=== PATIENT | female | born 1955 | race Caucasian/White ===

== ENCOUNTER → 2017-08-02 | Outpatient (CLI) | payer BC ==
[2017-08-02 12:17] VITALS: BP 151/80; PULSE 63; TEMP 98; BMI 29.2
--- NOTE | 2017-08-02 13:26 | P.GSHP ---
History of Present Illness H&P Date: 08/02/17 Patient is a 62 year old white female status post breast reduction in 2008 and has since had a nodule in the left breast in the 12 oclock position of the left breast. She awoke 3 days ago with pain in the area of the nodularity. The area of pain is at a specific lump in the left breast. It was tender and throbbing in nature. The area was warm to the touch. The pain is intermittent , it started on Saturday Am, and by Saturday is was improving, but it still is uncomfortable. The pain was spreading through to her nipple. Patient denies any pain or lumps in her right breast. Patient denies fevers. Patient did have bilateral mammogram done in approximately March 2017 and was told that this was benign and that she should have repeat mammogram in 1 year. These results revealed a large coarse calcification in the left breast near the area of palpable abnormality. No lesions of concern were documented in the right breast. Past surgical history: 1. total thyroid resection 2. bilateral breast reduction 3. hemorhoidectomy 4. dilation of esophagitis related to GERD 5. Blepharoplasty Past medical history: 1. Hypothyroidism on Synthroid secondary to surgical removal of thyroid for malignancy 2. GERD 3. hypertension Family history: 1. Personal history patient thyroid cancer Social history: Smoking: Negative Alcohol: Negative Drugs: Negative Hormonal history: Menarche: 15 pregnecy: none menopause: 55 BCP/hormones: none ROS: HEENT: thyroid cancer total thyroidectomy lungs: none heart: a-fib, not on blood thinners GI:GERD : none Musculoskeletal: None Neurologic: none skin: none psych: none - Constitutional Constitutional: Denies chills, Denies fever - EENT Eyes: denies blurred vision, denies pain Ears, nose, mouth and throat: Denies headache, Denies sore throat - Breasts Breasts: bilateral: as per HPI - Cardiovascular Cardiovascular: Reports as per HPI - Respiratory Respiratory: Reports as per HPI - Gastrointestinal Gastrointestinal: Reports as per HPI - Genitourinary (Female) Genitourinary: Reports as per HPI - Integumentary Integumentary: Denies pruritus, Denies rash - Neurological Neurological: Denies numbness, Denies weakness - Psychiatric Psychiatric: Denies anxiety, Denies depression - Endocrine Comment: total thyroidectomy Endocrine: Denies fatigue, Denies weight change - Hematologic/Lymphatic Comment: none - Allergic/Immunologic Allergic/Immunologic: Reports seasonal allergies Past Medical History - Past Family History Mother Family Medical History: Coronary Artery Disease (CAD) Brother(s) Family Medical History: Myocardial Infarction (ME) Medications and Allergies Home Medications Medication Instructions Recorded Confirmed Type Esomeprazole Magnesium [NexIUM] 40 mg PO HS 08/02/17 08/02/17 History Levothyroxine Sodium [Synthroid] 112 mcg PO QA 08/02/17 08/02/17 History Lisinopril [Zestril] 20 mg PO HS 08/02/17 08/02/17 History Surgical - Exam - General well developed, well nourished, no distress - Eyes normal ocular movement - ENT no hearing loss, no congestion - Neck Well-healed scar prior thyroidectomy a no masses, trachea midline - Respiratory normal respiratory effort, clear to auscultation - Cardiovascular Rhythm: regular Heart Sounds: normal: S1, S2 - Abdomen Abdomen: soft, non tender, no guarding, no rigid, no rebound - Neurologic no disoriented, no combative - Musculoskeletal normal gait, normal posture - Psychiatric oriented to time, oriented to person, oriented to place, speech is normal, memory intact Breast examination: Right breast: Well-healed scars from prior reduction no dominant masses or nodules of concern and multiple positional exam : Right axilla: No adenopathy of concern Left breast: Well-healed scars from prior reduction mammoplasty on examination at the 12 o'clock position there is an area of increased nodularity patient states that this has been present for many years but it is now tender In the medial periareolar area there is erythema/calor Left axilla no adenopathy of concern Results mammogram results reviewed left breast mammogram and ultrasound reviewed Assessment and Plan Assessment: Impression/plan: 1. Left breast pain/ultrasound findings reviewed, probable fat necrosis related to reduction mammoplasty 2. Status post bilateral breast reduction 3. History of thyroid cancer status post thyroid resection 4. Hypertension 5. GERD 6. Erythema/calor of the medial periareolar area of the left breast may represent superficial infection Plan: 1. Keflex secondary to erythema/calor of the medial periareolar area of the left breast there is no drainable abscess identified on ultrasound 2. Ultrasound-guided core biopsy of area of concern in the left breast 3. Follow-up after results of ultrasound core biopsy obtained 4. Medical management of medical problems 5. Follow-up sooner if the erythema or the pain increases CC: Dr. Gaspar, DR. Carranza
--- NOTE | 2017-08-05 08:29 | USB ---
Reason for exam: clinical finding. History: Reductions of both breasts, 2009. Physical Findings: Breast exam performed by Dr. Schmitt. US Breast LT Prior study comparison: March 01, 2017, mammogram, performed at [facility]. May 09, 2014, mammogram, performed at [facility]. Left complete breast ultrasound includes all four quadrants, the retroareolar region and axilla. Finding demonstrates a 2.0 x 2.6 x 0.7cm lobular, irregular, solid, hypoechoic lesion at 11-12 o'clock correlates with large dystrophic calcified masses on outside mammogram, a 0.7 x 0.6 x 0.3cm oval lesion too small to characterize at 1 o'clock and duct ectasia at 2 o'clock and posterior nipple. These results were verbally communicated with the patient and result sheet given to the patient on 08/02/17. ASSESSMENT: Benign, BI-RAD 2 RECOMMENDATION: Routine screening mammogram of both breasts in 6 months. Back on schedule.
== END | disposition home or self-care (01) ==
LOC: WWCWWP 11:11
PROVIDERS: ATTEND Surgery
DX: N63.20 Unspecified lump in the left breast, unspecified quadrant (principal)

== ENCOUNTER → 2017-08-13 | Day surgery (SDC) | payer BC ==
[2017-08-13 11:32] VITALS: RESP 16; BMI 29.2
[2017-08-13 13:01] VITALS: BP 127/78; PULSE 62; TEMP 98.1
--- NOTE | 2017-08-13 13:23 | USB ---
ULTRASOUND GUIDED CORE BIOPSY LEFT BREAST: CLINICAL HISTORY: Abnormal mammogram request for 11:00 calcified breast lesion for biopsy FINDINGS: The procedure was explained to the patient. The risks, complications, benefits and alternatives were discussed and any questions were answered. Informed consent was obtained. Patient was placed supine on the ultrasound table and prepped and draped in the usual sterile fashion. Utilizing a 14 gauge needle, 3 samples were obtained of the requested calcified lesion in the left breast at the approximate 11:00 position. Surgical clip was placed in the area sampled. Patient was stable throughout the procedure. Pathology is pending. All elements of maximal barrier and sterile technique were utilized. IMPRESSION: 1. Successful ultrasound core biopsy left breast mass. Pathology Results: Benign BREAST, LEFT, ULTRASOUND GUIDED CORE BIOPSY: Scar with calcifications, fat necrosis, and inflammation. Negative for malignancy. Recommendation Surgical consult of the left breast. VANCED
== END | disposition home or self-care (01) ==
LOC: RADUSWWP 11:15
PROVIDERS: ATTEND Surgery
DX: N64.1 Fat necrosis of breast (principal); N61.0 Mastitis without abscess; L90.5 Scar conditions and fibrosis of skin
CPT/HCPCS: 88305; 19083; A4648; J2001

== ENCOUNTER → 2017-08-29 | Outpatient (CLI) | payer BC ==
[2017-08-29 09:02] VITALS: BP 103/68; PULSE 70; TEMP 98.1; BMI 28.6
--- NOTE | 2017-08-29 09:25 | P.PN ---
Subjective Progress Note Date: 08/29/17 Principal diagnosis: status post left breast biopsy by radiology Patient underwent a left breast ultrasound biopsy on 08-13-17. The pathology was benign. The pain she had at the 12 oclock site has improved, however, on she noted swelling and redness at the 9 oclock site of the left breast. The patient denies any fever. The area of redness has remained persistent. I have discussed with her attempt at aspiration, with cultures to be obtained. She understands and wishes to proceed. Objective - Vital Signs Vital signs: Vital Signs Temp 98.1 F 08/29/17 08:54 Pulse 70 08/29/17 08:54 Resp BP 103/68 08/29/17 08:54 Pulse Ox 96 08/29/17 08:54 Intake & Output 08/28/17 08/29/17 08/29/17 18:59 06:59 18:59 Weight 75.75 kg - Constitutional General appearance: Present: average body habitus - Integumentary Integumentary Comment(s): Examination of the left breast reveals erythema at the one to 2 o'clock position in the periareolar region. The area of erythema is approximately 2 cm x 1 cm. There is an area of fullness at this site. The area of prior fullness at the 12 o'clock position remains however there was no pain or redness at that site. The puncture site from the core biopsy was identified and does not appear to be inflamed. No other masses in the left breast are noted. No left axillary adenopathy is noted. - Psychiatric Psychiatric: Present: A&O x's 3, appropriate affect, intact judgment & insight Assessment and Plan Assessment: Impression/plan: 1. Patient is status post left breast ultrasound-guided core biopsy pathology is benign 2. New area of erythema and tenderness in the lateral aspect of the left breast 3. Fine-needle aspiration performed/ specimen sent for culture and cytology 4. Patient will be started on oral antibiotics 5. Patient to follow up in 1 week she will call sooner if any questions or concerns CC: Dr. Carranza CC: Dr. Gaspar
--- NOTE | 2017-08-29 09:30 | P.PCN ---
Date of Procedure: 08/29/17 Preoperative Diagnosis: Fullness left breast Postoperative Diagnosis: same Procedure(s) Performed: Fine-needle aspiration, for culture Surgeon: Klaeigh Schmitt Estimated Blood Loss (ml): 0 Pathology: other (Specimen sent for cytology and cultures) Condition: stable Indications for Procedure: New fullness in the left breast with erythema associated with this suspect this may be related to inflammation versus abscess Description of Procedure: The area of concern in the left breast was palpated. It was prepped. A 22 gauge needle was inserted into the area and tissue from multiple passes was obtained. This was sent for cytology as well as culture. The patient tolerated the procedure well. The patient was started on oral antibiotics and will follow up next week.
== END | disposition home or self-care (01) ==
LOC: WWCWWP 08:47
PROVIDERS: ATTEND Surgery
DX: N63.20 Unspecified lump in the left breast, unspecified quadrant (principal); N64.4 Mastodynia

== ENCOUNTER → 2017-09-06 | Outpatient (CLI) | payer BC ==
[2017-09-06 12:22] VITALS: BP 123/79; PULSE 68; TEMP 98.2; BMI 28.1
--- NOTE | 2017-09-06 12:54 | P.PN ---
Subjective Progress Note Date: 09/06/17 The patient is a 62-year-old white female who was initially seen for discomfort in her left breast near the 12:00 region. On radiograph she had some changes which appeared to be consistent with prior reduction mammoplasty and a core biopsy was obtained. The core biopsy was benign. Following the core biopsy of pain in that area seemed to subside but she developed swelling near the region of the core biopsy. There was also erythema associated with this. An FNA was done of this area which was negative for any organisms on microbiology. And the specimen was virtually acellular consisting of blood and degenerated cellular material. It is felt this is most likely a resolving hematoma. Today the patient is feeling better with decrease in size of the area. The erythema has decreased. We will continue to follow conservatively. Physical exam: Examination of the left breast at the site of the prior core biopsy reveals continued area of noduarity on palpation at 12:00 which is benign on core biopsy this has decreased tenderness at the 9:00 region where the erythema had been noted and FNA was performed on 08/29/17 the area has decreased in size and the erythema has decreased. Impression/plan: 1. Resolved breast discomfort at the 12f:00 region of the breast were core biopsy was obtained 2. Resolving hematoma at the 9:00 region of the left breast/cultures negative, will not restart antibiotics at this time Plan: 1. Continue conservative management follow-up in 2 weeks' time Cc: Dr. Gaspar Objective - Vital Signs Vital signs: Vital Signs Temp 98.2 F 09/06/17 12:20 Pulse 68 09/06/17 12:20 Resp BP 123/79 09/06/17 12:20 Pulse Ox 96 09/06/17 12:20 Intake & Output 09/05/17 09/06/17 09/06/17 18:59 06:59 18:59 Weight 74.389 kg
== END | disposition home or self-care (01) ==
LOC: WWCWWP 12:05
PROVIDERS: ATTEND Surgery
DX: N64.4 Mastodynia (principal); Z53.9 Procedure and treatment not carried out, unspecified reason

== ENCOUNTER → 2017-09-19 | Outpatient (CLI) | payer BC ==
[2017-09-19 09:22] VITALS: BP 127/69; PULSE 57; BMI 28.1
--- NOTE | 2017-09-19 09:45 | P.PN ---
Progress Note - Text Progress Note Date: 09/19/17 The patient is a 62-year-old white female who is status post post-core biopsy of an area of concern in the left breast. Following the core biopsy although the pathology was benign she developed some swelling and erythema. She was initially treated for an infection however cultures were negative. At this time the swelling and erythema has decreased. She is not experiencing any pain in her breast. She has some residual fullness at the area of the biopsy. This is approximately 2 cm x 1 cm in size. Impression/plan: 1. Conservative management of resolving hematoma 2. Resolved discomfort in the breast 3. Follwo up in three months cc: Dr. Gaspar
== END ==
LOC: WWCWWP 08:59
PROVIDERS: ATTEND Surgery
DX: Z53.9 Procedure and treatment not carried out, unspecified reason (principal)

== ENCOUNTER → 2017-12-19 | Outpatient (CLI) | payer BC ==
[2017-12-19 09:44] VITALS: BP 134/85; PULSE 61; RESP 12; BMI 28.6
--- NOTE | 2017-12-19 10:27 | P.PN ---
Progress Note - Text Progress Note Date: 12/19/17 The patient is a 62-year-old white female who presents for repeat evaluation of the left breast. The patient had noticed some increased pain in her left breast at the 12 o'clock position as well as some nodularity. An ultrasound core biopsy of the area revealed scar with calcifications, fat necrosis, and inflammation negative for malignancy. Following the core biopsy the patient developed some swelling and erythema in the area and was treated with antibiotics. The patient also developed some firmness at the 2 o'clock position of the periareolar region on the left near where the needle had been inserted. This was believed to be consistent with a hematoma. This remains persistent and has not really decreased in size as per the patient. The erythema has resolved, and the pain has resolved as well. The patient has what appears to be a residual hematoma at the site of the core biopsy. By history the patient's last mammogram was approximately March 2017 which she was told was benign. Physical examination: Lungs: Clear Heart: Regular rate and rhythm Abdomen: Soft Left breast: Multiple positional exam reveals well-healed scar from prior reduction mammoplasty At the 11 o'clock position there is some increased nodularity which is believed to be the area which was biopsied and is benign at the approximately 2:00 periareolar position there is an area of firm nodularity which is approximately 1-1/2 cm in size this is consistent with the area where hematoma developed after her core biopsy we will continue to follow this closely Left axilla: No adenopathy of concern Impression/plan: 1. Decreased pain in the left breast 2. Decreased erythema left breast no evidence of any infection 3. Palpable abnormality consistent with fat necrosis remains in the upper inner area of the left breast, 4. Area of firmness remains at the 1 to 2:00 periareolar region of the left breast believed to be consistent with hematoma we will continue to follow this area Plan: 1. Repeat left breast ultrasound in 3 months time with physician exam at that time 2. If area of firmness remains at the 2 o'clock position of the left breast depending on ultrasound results may recommend FNA or core biopsy of this area Cc: Dr. Frances Gaspar, Dr. Gene Carranza
== END | disposition home or self-care (01) ==
LOC: WWCWWP 08:33
PROVIDERS: ATTEND Surgery
DX: Z53.9 Procedure and treatment not carried out, unspecified reason (principal)

== ENCOUNTER → 2018-06-25 | Outpatient (CLI) | payer BC ==
--- NOTE | 2018-06-25 11:33 | USB ---
Reason for exam: follow-up at short interval from prior study. History: Benign US breast needle core LT of the left breast, August 13, 2017. Reductions of both breasts, 2009. Indicated problem(s): palpable abnormality and lump or thickening in the left breast. Physical Findings: Nurse Summary: 2cm fixed nodule at 11 o'clock in the left breast and a 1cm fixed nodule at 12 o'clock in the left breast (nurse cw). US Breast LT Left complete breast ultrasound includes all four quadrants, the retroareolar region and axilla. Finding demonstrates a 1.1 x 0.6 x 1.2cm benign, cystic cluster at 12 o'clock, a 0.6 x 0.5 x 0.8cm palpable, cystic cluster at 2 o'clock BB, new, mammogram recommended to assess for new density and a 2.3 x 1.1 x 2.0cm solid, hypoechoic, vascular lesion at 11 o'clock BB, biopsy proven benign. These results were verbally communicated with the patient and result sheet given to the patient on 06/25/18. ASSESSMENT: Incomplete: need additional imaging evaluation, BI-RAD 0 RECOMMENDATION: Follow-up diagnostic mammogram of the left breast.
--- NOTE | 2018-06-25 11:37 | MM ---
Reason for exam: additional evaluation requested from prior study. Last mammogram was performed 1 year and 4 months ago. History: Benign US breast needle core LT of the left breast, August 13, 2017. Reductions of both breasts, 2009. MG 3D Diag Mammo W/Cad LT CC and MLO view(s) were taken of the left breast. Prior study comparison: March 01, 2017, mammogram, performed at [facility]. May 09, 2014, mammogram, performed at [facility]. The breast tissue is heterogeneously dense. This may lower the sensitivity of mammography. There are branching regional coarse calcifications at anterior depth in the left upper outer quadrant at the palpable site. Stereo is recommended as these are new. Dystrophic biopsy proven benign upper inner quadrant calcifications at middle depth with some new calcifications at this site. 6 month follow up for the new calcifications. These results were verbally communicated with the patient and result sheet given to the patient on 06/25/18. ASSESSMENT: Suspicious, BI-RAD 4 RECOMMENDATION: Stereotactic core biopsy of the left breast. Called with mammographic findings and has scheduled an appointment for the patient for 06/26/18 at 9:[address] Schmitt. Biopsy scheduled for 07/11/18 at 8:00. PRELIMINARY REPORT CALLED AND FAXED TO DR. SCHMITT ON 06/25/18.
== END | disposition home or self-care (01) ==
LOC: RADUSWWP 07:36
PROVIDERS: ATTEND Surgery
DX: R92.8 Other abnormal and inconclusive findings on diagnostic imaging of breast (principal)
CPT/HCPCS: 77061; 77065

== ENCOUNTER → 2018-06-26 | Outpatient (CLI) | payer BC ==
[2018-06-26 09:58] VITALS: BP 120/64; PULSE 62; RESP 20; TEMP 97.5; BMI 28.3
--- NOTE | 2018-06-26 10:18 | P.PN ---
Subjective Progress Note Date: 06/26/18 Principal diagnosis: abnormal mammogram left breast Patient is a 63-year-old white female who presents for repeat evaluation of the left breast. The patient had noticed some increased pain in her left breast at the 12 o'clock position as well as some nodularity approximately 8-9 months ago. An ultrasound core biopsy of the area reveals scar with calcifications, fat necrosis, and inflammation negative for malignancy. Following the core biopsy the patient developed some swelling and erythema in the area and was treated with antibiotics. The patient also developed some firmness at the 2 o'clock position of the periareolar region on the left with a needle had been inserted. This was believed to be consistent with a hematoma. The area remains persistent. The patient states it is decreased slightly in size. The erythema has resolved the pain has resolved as well. An ultrasound of the left breast was performed and [id number]. This revealed a 1.1 x 1.2 cm benign cystic cluster at 12:00, a 0.6 x 0.8 cm area at 2:00, and a mammogram was recommended. The patient had a density which was a 2.3 x 2 cm solid hypoechoic the colonic vascular lesion at 11:00 which had been biopsy-proven benign in the past. The patient had a repeat left breast mammogram on 420 [id number]. This revealed branching regional coarse calcifications in the left upper outer quadrant at the palpable site. Stereo biopsy was recommended as these are new. Dystrophic biopsy-proven benign upper inner quadrant calcifications at middle depth. Six- month follow-up for the new calcifications. And stereotactic core biopsy of the left breast for the new branching regional coarse calcifications that anterior depth. The patient does not feel any other lumps or masses in her breast. The patient has no nipple discharge or skin changes. The patient has had bilateral breast reduction in the past. Family history: thyroid cancer patient Hormonal history: menarche: 15 : none menopause: 51 BCP: none hormones: none Surgical history: 1. Bilateral thyroid lobes removed 2. Endoscopic esophageal stretching secondary to stenosi 3. Hemorrhoidectomy Medical history: 1. IBS Social history: Smoking: Negative Alcohol: Negative Drugs: Negative Review of systems: HEENT: Cataracts developing, macular degeneration Lungs: Negative Heart: Negative GI: Esophageal strictures in the past, irritable bowel syndrome, reflux : blood in urine followed by urology Objective - Exam BMI 28.3 - Constitutional General appearance: Present: average body habitus - EENT Eyes: Present: EOMI ENT: Present: hearing grossly normal - Neck Neck: Present: normal ROM - Respiratory Respiratory: bilateral: CTA - Cardiovascular Rhythm: regular Heart sounds: normal: S1, S2 - Integumentary Integumentary: Present: normal turgor - Musculoskeletal Musculoskeletal: Present: gait normal - Psychiatric Psychiatric: Present: A&O x's 3, appropriate affect, intact judgment & insight - Additional findings Additional findings: breast exam: right breast: Well-healed scars from prior right breast reduction mammoplasty, multiple positional exam no dominant masses or nodules of concern Right axilla: No adenopathy of concern Left breast: Multiple positional exam persistent nodularity at 12 o'clock position superficial slightly smaller than in the past Left axilla: No adenopathy of concern Assessment and Plan Assessment: Impression: 1. Radiographic abnormality left breast 2. Palpable abnormality left breast 3. Fibrocystic changes left breast 4. Prior history of thyroid cancer Plan: 1. Radiographs to be reviewed suspect stereotactic core biopsy of area in the left breast if this is too superficial would recommend open biopsy in the operating room CC: Dr. Gene Carranza
== END | disposition home or self-care (01) ==
LOC: WWCWWP 09:00
PROVIDERS: ATTEND Surgery
DX: Z53.9 Procedure and treatment not carried out, unspecified reason (principal)

== ENCOUNTER → 2018-07-11 | Day surgery (SDC) | payer BC ==
[2018-07-11 07:27] VITALS: PULSE 62; RESP 16; TEMP 98.1; BMI 27.8
--- NOTE | 2018-07-11 09:20 | MM ---
Stereotactic core biopsy left breast. HISTORY: Microcalcifications. The calcifications in question within the left breast were targeted by the undersigned. The examination was performed by the surgeon. Specimen radiograph demonstrates numerous calcifications within the specimen submitted. Post procedural mammogram demonstrates appropriate deployment of radiopaque clip marker. The patient tolerated the procedure well and left the department in stable condition. Pathology results are pending. IMPRESSION: Successful stereotactic core biopsy left breast with pathology results pending. Pathology Results: Benign LEFT BREAST, STEREOTACTIC CORE BIOPSY: Calcified fat necrosis with scar and inflammation. Negative for malignancy. Recommendation Follow up mammogram of the left breast in 6 months. VANCED
--- NOTE | 2018-07-11 09:32 | P.OP ---
Date of Procedure: 07/11/18 Preoperative Diagnosis: Abnormal mammogram Postoperative Diagnosis: Same Procedure(s) Performed: Stereotactic core biopsy left breast for microcalcifications Anesthesia: local Surgeon: Kaleigh Schmitt Estimated Blood Loss (ml): 1 Pathology: other (Breast tissue) Condition: stable Disposition: same day Indications for Procedure: Branching coarse calcifications left upper outer quadrant Description of Procedure: The patient was seen and examined. An area of microcalcification in the upper outer quadrant of the left breast was identified and radiographs which was felt to be suspicious. After discussion with the patient about risks and benefits it was decided that the patient should have a stereotactic core biopsy of the left breast. The patient understood and wished to have this performed as soon as possible. The patient was brought to the stereotactic core room and positioned on the lower lid table. The approach to reach the calcifications was lateral to medial. A 9-gauge vacuum-assisted core biopsy fatigue needle was utilized. A senior librarian radiograph was obtained. The lesion was identified. Stereo pair was obtained. The skin was prepped using Betadine. 20 cc of 1% lidocaine was used to anesthetize the area of the breast. The needle was driven to the correct coordinates. A post-fire Stereo pair was obtained. The needle was noted to be in the correct location and multiple core biopsies were obtained. Radiograph of the specimen revealed that the area of concern had been removed. A bowtie marking clip was placed. Radiograph revealed this was in the correct location. This specimen was sent to pathology. The patient will follow with Dr. Rodriguez in 1 week.
[2018-07-11 09:42] VITALS: BP 120/78
== END ==
LOC: RADMAMWWP 07:01
PROVIDERS: ATTEND Surgery
DX: N64.1 Fat necrosis of breast (principal); R92.1 Mammographic calcification found on diagnostic imaging of breast; R92.8 Other abnormal and inconclusive findings on diagnostic imaging of breast
CPT/HCPCS: 88305; 19081; A4648; J2001

== ENCOUNTER → 2018-07-18 | Outpatient (CLI) | payer BC ==
[2018-07-18 08:44] VITALS: BP 134/86; PULSE 88; RESP 18; TEMP 98.5; BMI 27.8
--- NOTE | 2018-07-18 09:01 | P.PN ---
Subjective Progress Note Date: 07/18/18 Principal diagnosis: The patient is a 63-year-old white female who is status post left breast stereotactic core biopsy on . Pathology revealed calcified fat necrosis was scar inflammation. This was negative for malignancy. The patient has no complaints related to the biopsy. Her most recent mammogram was [id number]. This revealed dystrophic biopsy-proven benign calcifications in the inner quadrant at the middle depth, and a new area of blanching regional coarse calcifications for which the stereo biopsy was performed. Objective - Vital Signs Vital signs: Vital Signs Temp 98.5 F 07/18/18 08:38 Pulse 88 07/18/18 08:38 Resp 18 07/18/18 08:38 BP 134/86 07/18/18 08:38 Pulse Ox 96 07/18/18 08:38 Intake & Output 07/17/18 07/18/18 07/18/18 18:59 06:59 18:59 Weight 73.482 kg - Constitutional Constitutional Comment(s): BMI 27.8 General appearance: Present: average body habitus - EENT Eyes: Present: EOMI ENT: Present: hearing grossly normal - Neck Neck: Present: normal ROM - Respiratory Respiratory: bilateral: CTA - Cardiovascular Rhythm: regular Heart sounds: normal: S1, S2 - Integumentary Integumentary Comment(s): Left breast: Biopsy site clean and dry, no evidence of hematoma or infection Integumentary: Present: normal turgor Assessment and Plan Assessment: Impression: 1. Radiographic abnormalities left breast as previously stated 2. Status post core biopsy radiographic abnormality benign 3. Fibrocystic changes breast 4. History of thyroid cancer 5. Status post breast reduction mammoplasty Plan: 1. Follow-up left breast mammogram and physician exam in 6 months 2. Patient to follow regarding palpable nodule in the left breast in 2 weeks The patient on today's examination is very upset because her brothers very sick and possibly preterminal. The patient's examination was somewhat limited therefore she is anxious to be present with her brother. She will be for follow-up in 2 weeks for repeat breast examination with respect to the palpable nodule which was identified in the left breast at the 12 o'clock position on prior visit. Cc: Dr. Carranza, Dr. Gaspar
== END | disposition home or self-care (01) ==
LOC: WWCWWP 08:33
PROVIDERS: ATTEND Surgery
DX: Z53.9 Procedure and treatment not carried out, unspecified reason (principal)

== ENCOUNTER → 2018-12-17 | Outpatient (CLI) | payer BC ==
[2018-12-17 12:20] LABS: Basophils # (A) 0.1 k/uL (0-0.2); Basophils % (A) 1 %; Eosinophils # (A) 0.1 k/uL (0-0.7); Eosinophils % (A) 2 %; HCT 42.5 % (34.0-46.0); HGB 13.4 gm/dL (11.4-16.0); Lymphocytes # (A) 1.6 k/uL (1.0-4.8); Lymphocytes % (A) 26 %; MCH 28.3 pg (25.0-35.0); MCHC 31.5 g/dL (31.0-37.0); MCV 89.8 fL (80.0-100.0); Mean Platelet Volume 6.8; Monocytes # (A) 0.4 k/uL (0-1.0); Monocytes % (A) 6 %; Neutrophils # (A) 3.8 k/uL (1.3-7.7); Neutrophils % (A) 63 %; Platelet Count 289 k/uL (150-450); RBC 4.73 m/uL (3.80-5.40)
[2018-12-17 18:39] LABS: African American GFR (CKD) 90.9 (60.0-200.0); Albumin 4.5 g/dL (3.80-4.90); Albumin/Globulin Ratio 2.5 (1.60-3.17); Anion Gap 7.2 mmol/L (4.00-12.00); Calcium 9.6 mg/dL (8.7-10.3); Carbon Dioxide 27.8 mmol/L (21.6-31.8); Chol/HDL Ratio 4.33; Globulin 1.8 g/dL (1.6-3.3); LDL Cholesterol,Calculated 146.8 mg/dL (0.0-131.0); Potassium 4.2 mmol/L (3.5-5.5); Total Bilirubin 0.7 mg/dL (0.3-1.2); Total Protein 6.3 g/dL (6.2-8.2); VLDL Calculation 23.2 mg/dL (5.00-40.00)
[2018-12-17 18:48] LABS: T4, Free (Free Thyroxine) 1.3 ng/dL (0.80-1.80)
== END | disposition home or self-care (01) ==
LOC: LABWHC1 10:23
PROVIDERS: ATTEND Family Medicine
DX: Z00.00 Encounter for general adult medical examination without abnormal findings (principal); E03.9 Hypothyroidism, unspecified; I10 Essential (primary) hypertension
CPT/HCPCS: 36415; 80053; 80061; 84439; 84443; 85025

== ENCOUNTER → 2018-12-29 | Outpatient (CLI) | payer BC ==
--- NOTE | 2018-12-29 11:21 | MM ---
Reason for exam: follow-up at short interval from prior study. Last mammogram was performed 6 months ago. History: Patient is postmenopausal and has history of other cancer at age 50. Benign MG stereo VAD BX LT of the left breast, July 11, 2018. Benign US breast needle core LT of the left breast, August 13, 2017. Reductions of both breasts, 2009. Physical Findings: Nurse Summary: 1cm nodule in the left breast at 11 o'clock (nurse waldemar). MG 3D Diag Mammo W/Cad LT CC and MLO view(s) were taken of the left breast. Prior study comparison: June 25, 2018, left breast MG 3d diag mammo w/cad LT. March 01, 2017, mammogram, performed at [facility]. The breast tissue is heterogeneously dense. This may lower the sensitivity of mammography. Benign appearing calcifications in the left breast. Previous mammotome biopsy in the left breast. These results were verbally communicated with the patient and result sheet given to the patient on 12/29/18. ASSESSMENT: Incomplete: need additional imaging evaluation, BI-RAD 0 RECOMMENDATION: Ultrasound of the left breast.
--- NOTE | 2018-12-29 11:23 | USB ---
Reason for exam: additional evaluation requested from abnormal screening. History: Patient is postmenopausal and has history of other cancer at age 50. Benign MG stereo VAD BX LT of the left breast, July 11, 2018. Benign US breast needle core LT of the left breast, August 13, 2017. Reductions of both breasts, 2008. US Breast Limited LT Left limited breast ultrasound including focal area of concern, retroareolar and axilla demonstrates a 2.0 x 1.3 x 0.9cm solid, calcified lesion at 11 o'clock and a 0.6 x 0.5 x 0.5cm cystic lesion at the posterior nipple. These results were verbally communicated with the patient and result sheet given to the patient on 12/29/18. ASSESSMENT: Benign, BI-RAD 2 RECOMMENDATION: Follow-up diagnostic mammogram of both breasts in 6 months.
== END | disposition home or self-care (01) ==
LOC: RADMAMWWP 09:36
PROVIDERS: ATTEND Surgery
DX: R92.8 Other abnormal and inconclusive findings on diagnostic imaging of breast (principal)
CPT/HCPCS: 77061; 77065

== ENCOUNTER → 2019-08-10 | Outpatient (CLI) | payer BC ==
[2019-08-10 15:22] LABS: T4, Free (Free Thyroxine) 1.2 ng/dL (0.80-1.80)
== END | disposition home or self-care (01) ==
LOC: LABWHC1 07:12
PROVIDERS: ATTEND Internal Medicine
DX: C73 Malignant neoplasm of thyroid gland (principal); E89.0 Postprocedural hypothyroidism; M89.9 Disorder of bone, unspecified
CPT/HCPCS: 36415; 84432; 84439; 84443; 84681; 86800

== ENCOUNTER → 2020-04-15 | Outpatient (CLI) | payer BC ==
--- NOTE | 2020-04-15 14:12 | XR ---
EXAM TYPE: LUMBAR SPINE X RAY SERIES COMPARISON: NONE HISTORY: Pain TECHNIQUE: 4 views are submitted. FINDINGS: Alignment is anatomic. The pedicles are intact. The transverse processes are intact. There is mild superior endplate compression fracture L2 of indeterminate age. Moderate degenerative disc disease L 4-5. Suspect a spondylolysis at L5 grade 1 anterolisthesis. Atherosclerotic change aorta. IMPRESSION: 1. Age-indeterminate superior endplate compression fracture L2. 2. Degenerative disc disease facet arthropathy L4-5 L5-S1. Grade 1 anterolisthesis L5 on S1 with susp ected spondylolysis.
== END | disposition home or self-care (01) ==
LOC: RADXRMAIN 12:39
PROVIDERS: ATTEND Family Medicine
DX: M43.17 Spondylolisthesis, lumbosacral region (principal); M51.37 Other intervertebral disc degeneration, lumbosacral region; M48.56XA Collapsed vertebra, not elsewhere classified, lumbar region, initial encounter for fracture
CPT/HCPCS: 72110

== ENCOUNTER → 2020-05-26 | Outpatient (CLI) | payer BC ==
--- NOTE | 2020-05-26 13:36 | BD ---
EXAMINATION TYPE: Axial Bone Density DATE OF EXAM: 05/26/2020 COMPARISON: 05.24.2015 CLINICAL HISTORY: 64 YR OLD FEMALE.....ICD-10 CODE: M85.88 OTHER DISORDER OF BONE DEN. Height: 63.2 Weight: 162 FRAX RISK QUESTIONS: History of Fracture in Adulthood: UNSURE RISK FACTORS HISTORY OF: Spine Fracture: UNSURE IF SPINAL FX IN PAST, XRAY RECENTLY SHOWED SPURRING AT L4 Family History of Osteoporosis: YES, HER MOTHER, NO HIP FX Postmenopausal woman: YES, AT AGE EARLY 50s Hyperparathyroidism: NO Adrenal Insufficiency: NO MEDICATIONS: Thyroid Medications: YES SYNTHROID, THYROID REMOVE EARLY 50s. FOR ABOUT 14 YRS Additional Medications: BP MEDS, HX OF RADIATION PILL FOR THYROID, REFLUX MEDS, VIT D, CALCIUM ON AND OFF Additional History: HYPERTENSION, REFLUX, OSTEOARTHRITIS EXAM MEASUREMENTS: Bone mineral densitometry was performed using the [employer]. Bone mineral density as measured about the Lumbar spine is: ----- L1-L4(G/cm2): 1.010 T Score Values are as follows: ----- L1: -2.1 ----- L2: -0.5 ----- L3: -1.6 ----- L4: -1.7 ----- L1-L4: -1.4 Bone mineral density has: Increased 3.0% SINCE.... 05.25.2015 Bone mineral density about the R hip (g/cm2): 0.796 Bone mineral density about the L hip (g/cm2): 0.814 T Score values are as follows: -----R Neck: -2.3 -----L Neck: -2.3 -----R Total: -1.7 -----L Total: -1.5 Bone mineral density has: Decreased -7.5% SINCE.....05.25.2015 FRAX%s: THERE IS A 19.7% CHANCE FOR A MAJOR OSTEOPOROTIC FX AND A 3.8% CHANCE FOR HIP......PROBABIL ITY FOR FX IN 10 YRS TIME IMPRESSION: Osteopenia NOTE: T-SCORE=SD OF THE YOUNG ADULT MEAN.
== END | disposition home or self-care (01) ==
LOC: RADBDWWP 09:27
PROVIDERS: ATTEND Family Medicine
DX: M85.89 Other specified disorders of bone density and structure, multiple sites (principal)
CPT/HCPCS: 77080

== ENCOUNTER → 2020-09-14 | Outpatient (CLI) | payer BC ==
--- NOTE | 2020-09-15 09:02 | MM ---
Reason for exam: additional evaluation requested from prior study. Last mammogram was performed 1 year and 9 months ago. History: Patient is postmenopausal, has history of other cancer at age 50, and is nulliparous. Benign MG stereo VAD BX LT of the left breast, July 11, 2018. Benign US breast needle core LT of the left breast, August 13, 2017. Reductions of both breasts, 2008. Physical Findings: Nurse Summary: 3-4cm nodule in the left breast at 10-12 o'clock (nurse db). MG 3D Diag Mammo W/Cad ALIZE Bilateral CC and MLO view(s) were taken. Prior study comparison: December 29, 2018, left breast MG 3d diag mammo w/cad LT. June 25, 2018, left breast MG 3d diag mammo w/cad LT. March 01, 2017, mammogram, performed at [facility]. Left biopsy clip and fat necrosis. These results were verbally communicated with the patient and result sheet given to the patient on 09/14/20. ASSESSMENT: Benign, BI-RAD 2 RECOMMENDATION: Routine screening mammogram of both breasts in 1 year.
== END | disposition home or self-care (01) ==
LOC: RADMAMWWP 14:59
PROVIDERS: ATTEND Obstetrics & Gynecology
DX: N64.1 Fat necrosis of breast (principal); Z78.0 Asymptomatic menopausal state; Z85.9 Personal history of malignant neoplasm, unspecified
CPT/HCPCS: 77062; 77066

== ENCOUNTER → 2020-09-30 | Outpatient (CLI) | payer BC ==
--- NOTE | 2020-09-30 10:56 | CT ---
EXAMINATION TYPE: CT shoulder RT wo con DATE OF EXAM: 09/30/2020 COMPARISON: None HISTORY: Nondisplaced fracture of greater tuberosity CT DLP: 537.10 mGycm Automated exposure control for dose reduction was used. FINDINGS: There is a displaced fracture of the greater tuberosity the right humerus with comminution and extens ion into the neck of the humerus and proximal diaphysis. Adjacent soft tissue edema and hematoma note d. Mild narrowing of the AC joint. Remaining osseous structures intact. Visualized lung mary clear. IMPRESSION: COMMINUTED DISPLACED FRACTURE INVOLVING THE GREATER TUBEROSITY AND PROXIMAL RIGHT HUMERUS.
== END | disposition home or self-care (01) ==
LOC: RADCTMAIN 07:05
PROVIDERS: ATTEND Orthopaedic Surgery
DX: S42.251A Displaced fracture of greater tuberosity of right humerus, initial encounter for closed fracture (principal)

== ENCOUNTER → 2020-11-22 | Outpatient (CLI) | payer BC | END | disposition home or self-care (01) | LOC: LABWHC1 14:06 | PROVIDERS: ATTEND Internal Medicine | DX: C73 Malignant neoplasm of thyroid gland (principal); E03.9 Hypothyroidism, unspecified | CPT/HCPCS: 36415; 84432; 84439; 84443; 86800 ==

== ENCOUNTER → 2021-02-16 | Outpatient (CLI) | payer BC ==
[2021-02-16 15:59] LABS: T4, Free (Free Thyroxine) 1.36 ng/dL (0.800-1.800)
== END | disposition home or self-care (01) ==
LOC: LABWHC1 09:57
PROVIDERS: ATTEND Internal Medicine
DX: E89.0 Postprocedural hypothyroidism (principal); M89.9 Disorder of bone, unspecified; E55.9 Vitamin D deficiency, unspecified
CPT/HCPCS: 36415; 82306; 82523; 84439; 84443

== ENCOUNTER → 2021-02-23 | Outpatient (CLI) | payer BC ==
[2021-02-23 15:16] LABS: African American GFR (CKD) 99.3 (60.0-200.0); Anion Gap 9.7 mmol/L (10.00-18.00); BUN/Creat Ratio 19.73 Ratio (12.00-20.00); Blood Urea Nitrogen 14.5 mg/dL (9.0-27.0); Calcium 9.9 mg/dL (8.7-10.3); Carbon Dioxide 27.6 mmol/L (20.0-27.5); Non-African American GFR(CKD) 85.7 (60.0-200.0); Potassium 4.2 mmol/L (3.5-5.5)
== END | disposition home or self-care (01) ==
LOC: LABWHC1 11:03
PROVIDERS: ATTEND Internal Medicine
DX: M89.9 Disorder of bone, unspecified (principal)
CPT/HCPCS: 36415; 80048

== ENCOUNTER → 2021-09-15 | Outpatient (CLI) | payer BC ==
--- NOTE | 2021-09-18 09:44 | MM ---
Reason for Exam: Screening (asymptomatic). Last screening mammogram was performed 12 month(s) ago. Patient History: Menarche at age 15. Patient has no children. Postmenopausal. Other cancer, age 50. 2009, Bilateral Reduction. 07/11/2018, Benign Core Biopsy on the left side. 08/13/2017, Benign Core Biopsy on the left side. Risk Values: Luann 5 year model risk: 2.5%. NCI Lifetime model risk: 9.0%. Prior Study Comparison: 06/25/2018 Left Diagnostic Mammogram, [facility]. 12/29/2018 Left Diagnostic Mammogram, [facility]. 09/14/2020 Bilateral Diagnostic Mammogram, [facility]. Tissue Density: The breast tissue is heterogeneously dense. This may lower the sensitivity of mammography. Findings: Analyzed By CAD. There is no suspicious group of microcalcifications or new suspicious mass in either breast. Stable benign calcifications left breast. Overall Assessment: Benign, BI-RAD 2 Management: Screening Mammogram of both breasts in 1 year. A clinical breast exam by your physician is recommended on an annual basis and results should be correlated with mammographic findings. Electronically signed and approved by: Scott Camejo M.D. Radiologis
== END | disposition home or self-care (01) ==
LOC: RADMAMWWP 10:12
PROVIDERS: ATTEND Obstetrics & Gynecology
DX: Z12.31 Encounter for screening mammogram for malignant neoplasm of breast (principal); Z78.0 Asymptomatic menopausal state
CPT/HCPCS: 77063; 77067

== ENCOUNTER → 2022-01-05 | Outpatient (CLI) | payer BC ==
[2022-01-05 18:07] LABS: Albumin 4.7 g/dL (3.8-4.9); Albumin/Globulin Ratio 2.04 (1.60-3.17); Anion Gap 12.9 mmol/L (10.00-18.00); BUN/Creat Ratio 15.13 Ratio (12.00-20.00); Blood Urea Nitrogen 12.1 mg/dL (9.0-27.0); Carbon Dioxide 26.1 mmol/L (20.0-27.5); Globulin 2.3 g/dL (1.6-3.3); Non-African American GFR(CKD) 76.8 (60.0-200.0); Potassium 4.2 mmol/L (3.5-5.5); T4, Free (Free Thyroxine) 1.25 ng/dL (0.800-1.800); Total Bilirubin 0.4 mg/dL (0.30-1.20)
== END | disposition home or self-care (01) ==
LOC: LABWHC1 11:52
PROVIDERS: ATTEND Internal Medicine
DX: C73 Malignant neoplasm of thyroid gland (principal); M89.9 Disorder of bone, unspecified; E89.0 Postprocedural hypothyroidism; E55.9 Vitamin D deficiency, unspecified
CPT/HCPCS: 36415; 80053; 82306; 83970; 84432; 84439; 84443; 86800

== ENCOUNTER → 2022-01-30 | Outpatient (CLI) | payer BC ==
--- NOTE | 2022-01-30 15:45 | NM ---
EXAMINATION TYPE: NM hepatobiliary w EF DATE OF EXAM: 01/30/2022 COMPARISON: NONE HISTORY: Diminished appetite with heartburn and reflux TECHNIQUE: After the intravenous administration of 4.69 mCi Tc 99m Mebrofenin hepatobiliary scintigra phy is performed. Immediate images post injection. FINDINGS: There is satisfactory initial accumulation of tracer by the liver. The gallbladder is visualized wit hin the minutes. The small bowel activity is noted within 20 minutes. At one hour 8 ounces of oral ensure plus is given to mimic CCK and gallbladder ejection fraction is calculated at 85 %, not dimini shed from the normal range. Therefore there is no scintigraphic evidence of cystic or common bile du ct obstruction to suggest acute cholecystitis or gallbladder hypokinesia. IMPRESSION: As above.
== END | disposition home or self-care (01) ==
LOC: RADNMMAIN 12:51
PROVIDERS: ATTEND Family Medicine
DX: K21.9 Gastro-esophageal reflux disease without esophagitis (principal); R74.8 Abnormal levels of other serum enzymes
CPT/HCPCS: 78226; A9537

== ENCOUNTER 2022-04-04 09:36 | Day surgery (SDC) | payer BC ==
[2022-04-04] MEDS ORDERED: LACTATED RINGERS 1,000 ML IV ONE (10:15)
[2022-04-04] MEDS ORDERED: LACTATED RINGERS 1,000 ML IV SCH (10:17)
[2022-04-04 10:21] VITALS: TEMP 96.6
[2022-04-04] MEDS ORDERED: LIDOCAINE 2% INJ 20 MG/ML (2 ML VIAL) ONE (11:31)
[2022-04-04] MEDS ORDERED: PROPOFOL 10 MG/ML 20 ML VIAL IV ONE (11:31)
--- NOTE | 2022-04-04 11:40 | P.PCN ---
Date of Procedure: 04/04/22 Procedure(s) Performed: BRIEF HISTORY: Patient is a 66-year-old, pleasant, white female as a part of evaluation of intermittent dysphagia to solids. She had an episode of severe dysphagia January this which lasted for 8 hours and finally she threw up in symptoms. Intervention been having intermittent dysphagia to solids. She is scheduled for an upper endoscopy with possible dilation. PROCEDURE PERFORMED: Esophagogastroduodenoscopy with biopsy/dilation. PREOPERATIVE DIAGNOSIS: Intermittent dysphagia to solids. IV sedation per anesthesia. PROCEDURE: After informed consent was obtained, the patient was brought into the endoscopy unit. IV sedation was administered by Anesthesia under continuous monitoring. Initially the Olympus GIF-140 video endoscope was inserted into the mouth. Esophagus intubated without any difficulty. It was gradually advanced into the stomach and duodenum and carefully examined. The bulb and the second part of the duodenum appeared normal. The scope at this time was withdrawn to the stomach, adequately insufflated with air, and upon careful examination, m ucosa of the antrum, body, cardia and the fundus appeared normal. The scope was then withdrawn into the esophagus. Moderate size hiatal hernia noted. The GE junction was located at 34 cm from the incisors. There was a distal esophageal Schatzki's ring identified and this was dilated using 18-20 mm TTS balloon in a sequential fashion for 60 seconds and there was oozing identified at the site of dilation. The rest of the esophagus appeared normal. There were no erosions or ulcerations seen, biopsies were done from the distal esophagus and the patient tolerated the procedure well. IMPRESSION: 1. Distal esophageal Schatzki's ring status post balloon dilation using 18-20 mm TTS balloon as described above. 2. Moderate size hiatal hernia. RECOMMENDATIONS: The findings of this examination were discussed with the patient as well as a family.. She was advised to be on a clear liquid diet for lunch today. Follow with the biopsy results. She'll be seen in office in 6 weeks.
[2022-04-04 12:12] VITALS: BP 119/76; PULSE 59; RESP 16
== END 2022-04-04 12:43 | disposition home or self-care (01) ==
LOC: ORWHC2ENDO 09:36
PROVIDERS: ATTEND Internal Medicine Gastroenterology
DX: R13.10 Dysphagia, unspecified (principal); K22.2 Esophageal obstruction; K44.9 Diaphragmatic hernia without obstruction or gangrene; K22.89 Other specified disease of esophagus; K58.9 Irritable bowel syndrome, unspecified; I10 Essential (primary) hypertension; E03.9 Hypothyroidism, unspecified; Z79.890 Hormone replacement therapy; Z79.899 Other long term (current) drug therapy
CPT/HCPCS: 43249; 43239; 88305; J2704; J2001; C1726

== ENCOUNTER → 2022-10-18 | Outpatient (CLI) | payer BC ==
--- NOTE | 2022-10-18 14:14 | BD ---
EXAMINATION TYPE: Axial Bone Density DATE OF EXAM: 10/18/2022 CLINICAL HISTORY: 67 years old Female. ICD-10 CODE: M81.0 SCREENING Height: 62.7 Weight: 155 FRAX RISK QUESTIONS: Family History (Parent hip fracture): yes History of an adult fx...yes, x3 RISK FACTORS HISTORY OF: hx of shoulder/humerus, thoracic spine, Family History of Osteoporosis: yes Postmenopausal woman: yes, 52 Hyperparathyroidism: no Adrenal Insufficiency: no MEDICATIONS: Thyroid Medications: yes, synthroid for about 20 yrs Additional Medications: hx of radiation, for thyroid, reflux meds, bp meds, vit d and calcium, Additional History: hypertension, reflux, osteoarthritis, EXAM MEASUREMENTS: Bone mineral densitometry was performed using the [employer]. Bone mineral density as measured about the Lumbar spine is: ----- L1-L4(G/cm2): 0.958 T Score Values are as follows: ----- L1: -2.5 ----- L2: -2.3 ----- L3: -1.5. ----- L4: -1.4 ----- L1-L4: -1.8 Z Score Values are as follows: ----- L1: -1.1 ----- L2: -0.8 ----- L3: 0.0 ----- L4: 0.0 ----- L1-L4: -0.4 Bone mineral density has: Decreased -5.1% since study of: 05.26.2020 Bone mineral density about the R hip (g/cm2): 0.769 Bone mineral density about the L hip (g/cm2): 0.798 T Score values are as follows: -----R Neck: -2.3 -----L Neck: -2.7 -----R Total: -1.9 -----L Total: -1.7 Z Score values are as follows: -----R Neck: -0.8 -----L Neck: -1.2 -----R Total: -0.7 -----L Total: -0.5 Bone mineral density has: Decreased -2.6% since study of: 05.26.2020 FRAX%s: The graph provided illustrates a 38.1% chance for a major osteoporotic fx and a 8.9% chance f or the hips probability for fx in 10 years time. IMPRESSION: Osteoporosis (T Score less than -2.5). There is increased fracture risk and therapy is usually indicated based on age. Re-Screen 1-2 years. NOTE: T-SCORE=SD OF THE YOUNG ADULT MEAN.
--- NOTE | 2022-10-19 10:23 | MM ---
Reason for Exam: Screening (asymptomatic). Last mammogram was performed 1 year(s) and 1 month(s) ago. Patient History: Menarche at age 15. Patient has no children. Postmenopausal. 2009, Bilateral Reduction. 07/11/2018, Benign Core Biopsy on the left side. 08/13/2017, Benign Core Biopsy on the left side. Risk Values: Luann 5 year model risk: 2.6%. NCI Lifetime model risk: 8.7%. Prior Study Comparison: 12/29/2018 Left Diagnostic Mammogram, [facility]. 09/14/2020 Bilateral Diagnostic Mammogram, [facility]. 09/15/2021 Bilateral MG 3D screening mammo w/cad, [facility]. Tissue Density: The breast tissue is heterogeneously dense. This may lower the sensitivity of mammography. Findings: Analyzed By CAD. Pattern appears symmetrical and stable. Coarse calcifications within the upper inner mid left breast. Core markers within the left breast. No suspicious groups of microcalcifications, spiculated or lobular masses, architectural distortion or other secondary signs of malignancy are mammographically apparent. Overall Assessment: Benign, BI-RAD 2 Management: Screening Mammogram of both breasts in 1 year. A negative mammogram report should not preclude additional follow up of suspicious palpable abnormalities. Patient should continue monthly self breast exam. A clinical breast exam by your physician is recommended on an annual basis and results should be correlated with mammographic findings. Electronically signed and approved by: Eliazar Downs D.O. Radiologis
== END | disposition home or self-care (01) ==
LOC: RADMAMWWP 13:08
PROVIDERS: ATTEND Obstetrics & Gynecology
DX: Z12.31 Encounter for screening mammogram for malignant neoplasm of breast (principal); M81.0 Age-related osteoporosis without current pathological fracture; M85.89 Other specified disorders of bone density and structure, multiple sites; I10 Essential (primary) hypertension; K21.9 Gastro-esophageal reflux disease without esophagitis; Z78.0 Asymptomatic menopausal state
CPT/HCPCS: 77063; 77067; 77080

== ENCOUNTER → 2023-03-01 | Outpatient (CLI) | payer BC ==
[2023-03-01 15:06] LABS: Basophils # (A) 0.03 X 10*3/uL (0.00-0.10); Basophils % (A) 0.6 %; Eosinophils # (A) 0.11 X 10*3/uL (0.04-0.35); HCT 41.4 % (37.2-46.3); HGB 13.4 g/dL (12.0-15.0); Lymphocytes % (A) 25.9 %; MCH 28.5 pg (27.0-32.0); MCHC 32.4 g/dL (32.0-37.0); MCV 88.1 FL (80.0-97.0); Mean Platelet Volume 10.2 FL (9.5-12.2); Monocytes # (A) 0.54 X 10*3/uL (0.20-1.00); NRBC Per 100 WBC 0 X 10*3/uL (0.00-0.01); Neutrophils # (A) 3.32 X 10*3/uL (1.80-7.70); Neutrophils % (A) 61.3 %; Platelet Count 311 X 10*3/uL (140-440); RDW 12.8 % (11.5-14.5); WBC 5.41 X 10*3/uL (4.50-10.00)
[2023-03-01 15:50] LABS: Chol/HDL Ratio 3.97 Ratio; LDL Cholesterol,Calculated 139.6 mg/dL (0.0-131.0); VLDL Calculation 16.74 mg/dL (5.00-40.00)
== END | disposition home or self-care (01) ==
LOC: LABWHC1 10:14
PROVIDERS: ATTEND Internal Medicine
DX: Z00.00 Encounter for general adult medical examination without abnormal findings (principal); E89.0 Postprocedural hypothyroidism; E55.9 Vitamin D deficiency, unspecified; C73 Malignant neoplasm of thyroid gland; R74.8 Abnormal levels of other serum enzymes
CPT/HCPCS: 36415; 80061; 82306; 84432; 84439; 84443; 85025; 86800

== ENCOUNTER 2023-06-15 20:27 | Emergency (ER) | payer MEDICARE ==
--- NOTE | 2023-06-15 21:10 | ED ---
Upper Extremity HPI - General Source: patient, RN notes reviewed Limitations: no limitations <Katie John - Last Filed: 06/15/23 21:08> <Chavo Michael - Last Filed: 06/15/23 22:36> - General Chief Complaint: Extremity Injury, Upper Stated Complaint: Fall Time Seen by Provider: 06/15/23 20:45 - History of Present Illness Initial Comments: David underwood is a 68-year-old female presents emergency department chief complaint of fall. Patient states that she was walking her grandchild's dog this afternoon when the leash pulled and she felt to the ground. She is complaining of left-sided shoulder and arm pain in addition to left-sided knee pain. Patient denies hitting her head or loss of consciousness during fall. Is not on blood thinners. (Katie John) Dictation was produced using [employer] dictation software. please excuse any grammatical, word or spelling errors. Chief Complaint: 68-year-old female presents with left elbow pain History of Present Illness: Patient 68-year-old female presents emergency department left elbow pain just prior to arrival she was walking her dog when the dog caused her to fall forward. She fell on outstretched hand absorbing the force through her left wrist. She states after the fall she started to experience pain at her left elbow. She states that it hurts whenever she tries to supinate. She states that the pain radiates to her mid humerus and also down to her mid forearm. Denies any numbness tingling paresthesias to the distal left extremity The ROS documented in this emergency department record has been reviewed and confirmed by me. Those systems with pertinent positive or negative responses have been documented in the HPI. All other systems are other negative and/or noncontributory. (Chavo Michael) - Related Data Home Medications Medication Instructions Recorded Confirmed Levothyroxine Sodium [Synthroid] 112 mcg PO QAM 08/02/17 04/04/22 lisinopriL [Zestril] 10 mg PO HS 08/02/17 04/04/22 Cholecalciferol (Vitamin D3) 2,000 unit PO QAM 08/13/17 04/02/22 [Vitamin D3] Allergies Allergy/AdvReac Type Severity Reaction Status Date / Time No Known Allergies Allergy Verified 04/04/22 10:18 Review of Systems ROS Other: All systems not noted in ROS Statement are negative. <Katie John - Last Filed: 06/15/23 21:08> ROS Other: All systems not noted in ROS Statement are negative. <Chavo Michael - Last Filed: 06/15/23 22:36> ROS Statement: Those systems with pertinent positive or pertinent negative responses have been documented in the HPI. Past Medical History Past Medical History: Cancer, Eye Disorder, GERD/Reflux, Hypertension, Thyroid Disorder Additional Past Medical History / Comment(s): THYROID CANCER 2005. IRRITABLE BOWEL SYNDROME. MACULAR DEGENERATION History of Any Multi-Drug Resistant Organisms: None Reported Past Surgical History: Breast Surgery Additional Past Surgical History / Comment(s): THYROID REMOVAL AND RADIATION THERAPY. HEMORRHOIDECTOMY 1998. BREAST BIOPSY 11/2006, 08/2017. Esophageal Dilation approximately 2009. BREAST REDUCTION 11/2009 Past Anesthesia/Blood Transfusion Reactions: Postoperative Nausea & Vomiting (PONV) Additional Past Anesthesia/Blood Transfusion Reaction / Comment(s): "Severe nausea and vomiting" responded very well with last surgery when anesthesiologist ordered a scolpamine patch and "something in my IV" Past Psychological History: No Psychological Hx Reported Smoking Status: Never smoker Past Alcohol Use History: None Reported Past Drug Use History: None Reported - Past Family History Mother Family Medical History: Coronary Artery Disease (CAD) Additional Family Medical History / Comment(s): 07/01/18: Patient states her mother is still alive at 83 years old, has had one cardiac stent implanted Brother(s) Family Medical History: Myocardial Infarction (RI) Additional Family Medical History / Comment(s): 3 brothers, all have had multiple heart attacks as early as age 30's. <Katie John - Last Filed: 06/15/23 21:08> General Exam Limitations: no limitations <Katie John - Last Filed: 06/15/23 21:08> <Chavo Michael - Last Filed: 06/15/23 22:36> - General Exam Comments Initial Comments: Visual Physical Exam Vital signs reviewed General: Well-appearing, nontoxic, no acute distress. Head: Normocephalic, atraumatic Eyes: PERRLA, EOMI ENT: Airway patent Chest: Nonlabored breathing Skin: No visual rash, normal skin tone Neuro: Alert and oriented 3 Musculoskeletal: No gross abnormalities (Katie John) General: Well-appearing, nontoxic, no acute distress. Head: Normocephalic, atraumatic Eyes: PERRLA, EOMI ENT: Airway patent Chest: Nonlabored breathing Skin: No visual rash, normal skin tone Neuro: Alert and oriented 3 Musculoskeletal: No gross abnormalities Left upper extremity: Palpable tenderness to the left lateral elbow forearm. Pain reproduced with supination and pronation (Chavo Michael) Course Vital Signs 06/15/23 20:59 Temperature 97.3 F L Pulse Rate 67 Respiratory 18 Rate Blood Pressure 184/96 O2 Sat by Pulse 96 Oximetry Medical Decision Making <Katie John - Last Filed: 06/15/23 21:08> <Chavo Michael - Last Filed: 06/15/23 22:36> - Medical Decision Making I completed the quick note portion of this chart signed Katie John PA-C (Katie John) Was pt. sent in by a medical professional or institution ([facility], HIGH [employer]CHO[employer] SCIENCE TUTOR, urgent care, hospital, or care home...) When possible be specific @ -No Did you speak to anyone other than the patient for history (EMS, parent, family, police, friend...)? What history was obtained from this source @ -No Did you review nursing and triage notes (agree or disagree)? Why? @ -I reviewed and agree with nursing and triage notes Were old charts reviewed (outside hosp., previous admission, EMS record, old EKG, old radiological studies, urgent care reports/EKG's, care home records)? Report findings @ -No old charts were reviewed Differential Diagnosis (chest pain, altered mental status, abdominal pain women, abdominal pain men, vaginal bleeding, musculoskeletal, weakness, fever, dyspnea, syncope, headache, dizziness, GI bleed, back pain, seizure, CVA, palpatations, m ental health)? @ -Not applicable EKG interpreted by me (3pts min.). @ -None done X-rays interpreted by me (1pt min.). @ -X-ray of the left knee, left shoulder left humerus left forearm shows no oc cult fractures CT interpreted by me (1pt min.). @ -None done U/S interpreted by me (1pt. min.). @ -None done What testing was considered but not performed or refused? (CT, X-rays, U/S, labs)? Why? @ -None What meds were considered but not given or refused? Why? @ -None Did you discuss the management of the patient with other professionals (professionals i.e. Dr., PA, HIGH SCHOOL SCIENCE TUTOR, lab, RT, psych nurse, social security assessor, growth media mixer mushroom, teacher, conservation science officer, case liner)? Give summary @ -No Was smoking cessation discussed for >3mins.? @ -No Was critical care preformed (if so, how long)? @ -No Were there social determinants of health that impacted care today? How? (Homelessness, low income, unemployed, alcoholism, drug addiction, transportation, low edu. Level, literacy, decrease access to med. care, skilled nursing, rehab)? @ -No Was there de-escalation of care discussed even if they declined (Discuss DNR or withdrawal of care, Hospice)? DNR status @ -No What co-morbidities impacted this encounter? (DM, HTN, Smoking, COPD, CAD, Cancer, CVA, ARF, Chemo, Hep., AIDS, mental health diagnosis, sleep apnea, morbid obesity)? @ -None Was patient admitted / discharged? Hospital course, mention meds given and route, prescriptions, significant lab abnormalities, going to OR and other pertinent info. @ -60-year-old female presents emergency department clinical presentation consistent with a left elbow sprain. Vital signs stable. Physical exam localizes symptoms at the left elbow. X-rays unremarkable. Patient given a sling for comfort. Advised follow-up with primary care doctor. Undiagnosed new problem with uncertain prognosis? @ -No Drug Therapy requiring intensive monitoring for toxicity (Heparin, Nitro, Insulin, Cardizem)? @ -No Were any procedures done? @ -No Diagnosis/symptom? Acute, or Chronic, or Acute on Chronic? Uncomplicated (without systemic symptoms) or Complicated (systemic symptoms)? @ -Left elbow sprain Side effects of treatment? @ -No Exacerbation, Progression, or Severe Exacerbation? @ -No Poses a threat to life or bodily function? How? (Chest pain, [place], RI, pneumonia, PE, COPD, DKA, ARF, appy, cholecystitis, CVA, Diverticulitis, Homicidal, Suicidal, threat to staff... and all critical care pts) @ -No (Chavo Michael) Disposition <Katie John - Last Filed: 06/15/23 21:08> Is patient prescribed a controlled substance at d/c from ED?: No Time of Disposition: 22:35 <Chavo Michael - Last Filed: 06/15/23 22:36> Clinical Impression: Elbow strain Disposition: HOME SELF-CARE Condition: Good Instructions (If sedation given, give patient instructions): Elbow Sprain (ED) Referrals: Gene Carranza Jr, DO [Primary Care Provider] - 1-2 days Mingo Joshua MD [STAFF PHYSICIAN] - 1-2 days
[2023-06-15 21:23] VITALS: TEMP 97.3
--- NOTE | 2023-06-15 21:52 | XR ---
EXAMINATION TYPE: XR knee complete LT DATE OF EXAM: 06/15/2023 9:42 PM CLINICAL INDICATION:Female, 68 years old with history of fall, pain; [facility] COMPARISON: None. TECHNIQUE: XR knee complete LT; examined in Frontal, lateral and oblique projections. FINDINGS: No evidence of any acute osseous pathology, soft tissue swelling, or joint effusion is no shala. Tricompartmental osteophyte formation involving the femoral condyles, tibial plateau and patella . Mild joint space narrowing. IMPRESSION: 1. No acute osseous pathology. 2. Mild tricompartmental osteoarthritic changes.
--- NOTE | 2023-06-15 21:52 | XR ---
EXAMINATION TYPE: XR humerus LT, XR shoulder complete LT, XR forearm LT DATE OF EXAM: 06/15/2023 9:42 PM CLINICAL INDICATION:Female, 68 years old with history of fall, pain; [facility] COMPARISON: None TECHNIQUE: XR humerus LT, XR shoulder complete LT, XR forearm LT examined in frontal and lateral proj ections. Additional internal/external rotations and scapular Y of the shoulder. FINDINGS: No evidence of acute osseous pathology, joint dislocation, or soft tissue swelling. The rem aining portions of the visualized chest are unremarkable. IMPRESSION: No acute osseous pathology.
[2023-06-15] MEDS: traMADol 50 MG STARTER PACK 3 TAB BTL PO STA (22:44)
[2023-06-15 23:19] VITALS: BP 142/82; PULSE 73; RESP 16
== END 2023-06-15 23:10 | disposition home or self-care (01) ==
LOC: EC 20:27
DX: S66.912A Strain of unspecified muscle, fascia and tendon at wrist and hand level, left hand, initial encounter (principal); W18.39XA Other fall on same level, initial encounter; Y93.K1 Activity, walking an animal
CPT/HCPCS: 99283

== ENCOUNTER 2023-10-29 10:18 | Day surgery (SDC) | payer MEDICARE ==
[~2023-10-29 10:18] MED LIST: ALPRAZolam 0.25 MG TAB PO PRN; ALPRAZolam 0.5 MG TAB PO PRN; NITROGLYCERIN SL TABS 0.4 MG TAB SUBLINGUAL PRN
[2023-10-29] MEDS: IV FLUID CONTINUATION 1,000 ML IV ONE (10:50)
[2023-10-29] MEDS: SODIUM CHLORIDE 0.9% 1,000 ML in EMPTY BAG 1 BAG IV SCH ×2 (10:50→16:37)
[2023-10-29 11:10] LABS: Basophils % (A) 0 %; Eosinophils # (A) 0.2 k/uL (0-0.7); Eosinophils % (A) 2 %; HGB 14.2 gm/dL (11.4-16.0); Lymphocytes % (A) 26 %; MCV 87.7 fL (80.0-100.0); Mean Platelet Volume 7.8; Monocytes # (A) 0.5 k/uL (0-1.0); Monocytes % (A) 6 %; Neutrophils # (A) 4.7 k/uL (1.3-7.7); Neutrophils % (A) 63 %; Platelet Count 293 k/uL (150-450); RDW 12.5 % (11.5-15.5); WBC 7.5 k/uL (3.8-10.6)
[2023-10-29 11:21] LABS: African American GFR (CKD) >90 (>60 ml/min/1.73 sqM); Anion Gap 3 mmol/L; Blood Urea Nitrogen 14 mg/dL (7-17); Calcium 9.5 mg/dL (8.4-10.2); Carbon Dioxide 28 mmol/L (22-30); Chloride 107 mmol/L (98-107); Glucose 91 mg/dL (74-99); Non-African American GFR(CKD) >90 (>60 ml/min/1.73 sqM); Sodium 138 mmol/L (137-145)
[2023-10-29 11:26] LABS: Potassium 4.6 mmol/L (3.5-5.1)
[2023-10-29] MEDS ORDERED: VERAPAMIL 2.5 MG/ML 2 ML AMP ONE (12:23)
[2023-10-29] MEDS ORDERED: LIDOCAINE 1% INJ 10MG/ML (20 ML MDV) ONE (12:23)
[2023-10-29] MEDS: LIDOCAINE 1% INJ 10MG/ML (30 ML VIAL-PF) SQ ONE (12:52)
[2023-10-29] MEDS ORDERED: HEPARIN SODIUM 1,000 UN/ML (10ML VL) ONE (12:53)
[2023-10-29] MEDS: MIDAZOLAM 2 MG/2 ML VIAL IVP ONE ×2 (12:54→12:55)
[2023-10-29] MEDS: VERAPAMIL SYRINGE (5 MG/10 ML) INTRAARTER ONE (12:55)
[2023-10-29] MEDS: HEPARIN SODIUM 1,000 UN/ML (10ML VL) IVP ONE (12:56)
[2023-10-29] MEDS: ATROPINE SULFATE 0.1 MG/ML 10ML SYRINGE IVP ONE (13:19)
[2023-10-29] MEDS ORDERED: TICAGRELOR 90 MG TAB ONE (13:21)
[2023-10-29] MEDS ORDERED: MORPHINE SULFATE 4 MG/ML SYRINGE ONE (13:23)
[2023-10-29] MEDS: TICAGRELOR 90 MG TAB PO ONE (13:25)
[2023-10-29] MEDS: MORPHINE SULFATE 4 MG/ML SYRINGE IVP ONE (13:26)
[2023-10-29] MEDS: HEPARIN SODIUM (1,000 UNIT/ML) 1,000 UNIT in SODIUM CHLORIDE 0.9% 1,000 ML IRRIGATION ONE (13:44)
[2023-10-29] MEDS: IOPAMIDOL-370 200ML BTL INJ ONE (13:50)
[2023-10-29] MEDS ORDERED: RX INFO: IV CONTRAST WAS GIVEN 1 EACH MISC MISCELLANE PRN (13:53)
[2023-10-29] MEDS ORDERED: ATROPINE SULFATE 0.1 MG/ML 10ML SYRINGE IV PRN (13:53)
[2023-10-29] MEDS ORDERED: NITROGLYCERIN SL TABS 0.4 MG TAB SUBLINGUAL PRN (13:53)
[2023-10-29] MEDS ORDERED: MAG HYDROX/AL HYDROX/SIMETH 30 ML CUP PO PRN (13:53)
[2023-10-29] MEDS ORDERED: ZOLPIDEM 5 MG TAB PO PRN (13:53)
--- NOTE | 2023-10-29 14:12 | P.PCN ---
Date of Procedure: 10/29/23 Operative Findings: CARDIAC CATHETERIZATION AND PERCUTANEOUS CORONARY INTERVENTION PERFORMING PHYSICIAN: Satish Truong MD, [facility] PROCEDURE PERFORMED: 1. Selective right and left coronary angiogram 2. Left heart catheterization 3. Successful stenting of mid RCA using 3.0 x 38 mm Xience VANESSA with an excel lent angiographic results with adjunctive use of endovascular all imaging IVUS 4. Ultrasound-guided access of the right radial artery INDICATION: Symptomatic 68-year-old female patient who is known to have CAD based on CT calcium score and abnormal myocardial perfusion imaging stress test COMPLICATION: None APPROACH: Right radial artery LEVEL OF SEDATION: Moderate with the sedation time off 56 minutes PROCEDURE DESCRIPTION: After obtaining informed consent the patient was brought to the cardiac Vascular Technician. The right radial artery was cannulated using a correct technique under ultrasound guidance and micropuncture wire passed easily then a place a 6 Maltese 11 cm sheath at the right radial artery and subsequently initiated anticoagulation using heparin with continuous ACT monitoring and also the patient was given 2 mg of verapamil intra-arterial. Selective right and left coronary angiogram performed using JR4 and JL 3.5 catheters to be left heart catheterization was performed using 5 Maltese pigtail catheter with after that I decided to intervene on the RCA. Initially the plan was to perform an FFR of the RCA. After zeroing the valvular wire and equalized in between the valvular wire and the guiding catheter which was an AL 0.75 guiding catheter the RCA was engaged. Subsequently attempting to wire the RCA was done but the patient subsequently developed no flow in the right coronary artery concerning for possible dissection involving the ostial right coronary artery with a guiding catheter. I did advance the wire distally to the RCA and the wire was positioned in the PLV branch of the RCA but that was a whisper wire because the double wire was not crossing the mid right coronary artery. After that an angiogram was taken and the flow in the right coronary artery was restored immediately but the lesion in the distal RCA appeared to be somewhat concerning. I decided to stent that lesion. I did intravascular ultrasound which showed a diameter around 3.0 to 3.25 mm and calcium arc extend to about 180 degree. I did predilatation using 2.5 mm noncompliant balloon before I deployed a 3.0 x 38 mm stent which was postdilated using 3.5 mm noncompliant balloon with final angiogram showing excellent angiographic results and the procedure was completed with no complication SELECTIVE CORONARY ANGIOGRAM: The right coronary artery: Heavily calcified at the large-caliber vessel and dominant vessel with severe tubular lesion involving the mid to distal portion Left main: Calcified with mild to moderate disease only. The left circumflex: Large caliber vessel and nondominant vessel with the LCx gives rise into an OM branch which has intermediate to severe lesion. The left anterior descending artery: Large caliber vessel with intermediate to severe disease involving the midportion as well. The LAD distally appears to have mild disease only HEMODYNAMICS: The LVEDP was about 12 mmHg with no significant gradient was identified across aortic valve CONCLUSION: Severe disease involving the mid to distal RCA. I did perform successful PCI as described above Mild to moderate disease involving the left main coronary artery and intermediate to severe disease involving the first obtuse marginal branch and mid LAD Normal left-sided filling pressure POSTPROCEDURE MANAGEMENT: 1. Dual antiplatelet therapy using aspirin and Brilinta for at least 6 month 2. Aggressive cholesterol control 3. Follow-up with the patient
[2023-10-29] MEDS: ASPIRIN 325 MG TAB PO ONE (15:56)
[2023-10-29] MEDS: TICAGRELOR 90 MG TAB PO SCH (21:23)
[2023-10-29] MEDS: ATORVASTATIN 80 MG TAB PO SCH (21:24)
[2023-10-29] MEDS: lisinopriL 10 MG TAB PO SCH (21:24)
[2023-10-30 05:09] VITALS: RESP 15
[2023-10-30 07:47] VITALS: BP 123/73; PULSE 62; TEMP 98.5
--- NOTE | 2023-10-30 07:58 | P.DS ---
Providers Attending physician: Satish Truong Consults: 10/29/23 13:53 Consult Physician Routine Consulting Provider: [facility] Consult Reason/Comments: Post Interventional Patient Do you want consulting provider notified?: Already Contacted Primary care physician: [place] [facility] Course: The patient is a pleasant 68-year-old female patient who underwent yesterday heart catheterization and PCI of the RCA. She was seen and evaluated this morning which she is asymptomatic and hemodynamically stable. Overall examination is unremarkable besides mild bruises over the right radial artery. The patient is going to be discharged home on dual antiplatelet therapy along with high intensity statin. Beta-deann will not be given because she was bradycardic last night. I will follow-up with the patient next week in the office Plan - Discharge Summary New Discharge Prescriptions: New Atorvastatin [Lipitor] 80 mg PO HS #90 tab Ticagrelor [Brilinta] 90 mg PO BID #180 tab Continue lisinopriL [Zestril] 10 mg PO HS Levothyroxine Sodium [Synthroid] 112 mcg PO QAM Cholecalciferol (Vitamin D3) [Vitamin D3] 2,000 unit PO QAM Aspirin 81 mg PO DAILY Discharge Medication List Levothyroxine Sodium [Synthroid] 112 mcg PO QAM 08/02/17 [History] lisinopriL [Zestril] 10 mg PO HS 08/02/17 [History] Cholecalciferol (Vitamin D3) [Vitamin D3] 2,000 unit PO QAM 08/13/17 [History] Aspirin 81 mg PO DAILY 10/29/23 [History] Atorvastatin [Lipitor] 80 mg PO HS #90 tab 10/30/23 [Rx] Ticagrelor [Brilinta] 90 mg PO BID #180 tab 10/30/23 [Rx] Follow up Appointment(s)/Referral(s): Satish Truong MD [STAFF PHYSICIAN] - 1 Week (APPOINTMENT MADE ON @ 3:00PM ) Activity/Diet/Wound Care/Special Instructions: *NO LIFTING, PUSHING, OR PULLING ANYTHING OVER 5 POUNDS FOR 5 DAYS *NO DRIVING FOR 3 DAYS *YOU CAN REMOVE YOUR DRESSING TOMORROW BUT DO NOT SUBMERSE YOUR PUNCTURE SITE IN WATER FOR A FEW DAYS TO PREVENT INFECTION - SO NO TUB BATHS, POOLS, HOT TUBS, DISHES...ETC *ANY SIGNS OF BLEEDING (HARDNESS, SWELLING OR EXCESSIVE BRUISING) HOLD DIRECT PRESSURE ON YOUR PUNCTURE SITE AND COME TO THE NEAREST EMERGENCY ROOM - DO NOT DRIVE YOURSELF! EITHER CALL EMS OR HAVE SOMEONE DRIVE YOU!
[2023-10-30] MEDS ORDERED: ASPIRIN 81 MG PO SCH (09:00)
[2023-10-30] MEDS: ASPIRIN 81 MG PO SCH (09:40)
[2023-10-30] MEDS: LEVOTHYROXINE 112 MCG TAB PO SCH (09:41)
[2023-10-30] MEDS: CHOLECALCIFEROL 25 MCG (1000 IU) TABLET PO SCH (09:43)
== END 2023-10-30 10:37 | disposition home or self-care (01) ==
LOC: CATHCVL 10:18 → 6NMEDSUR 13:45 → CATHCVL 10-30 10:37
PROVIDERS: ATTEND Internal Medicine Interventional Cardiology
DX: I25.10 Atherosclerotic heart disease of native coronary artery without angina pectoris (principal); Z79.02 Long term (current) use of antithrombotics/antiplatelets; Z79.82 Long term (current) use of aspirin; Z95.5 Presence of coronary angioplasty implant and graft

== ENCOUNTER 2023-11-21 18:03 | Emergency (ER) | payer OTHER, MEDICARE ==
[2023-11-21 18:12] VITALS: TEMP 97.7
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
[2023-11-21 20:13] VITALS: BP 139/86; PULSE 67; RESP 16
== END 2023-11-21 20:13 | disposition home or self-care (01) ==
LOC: EC 18:03
CPT/HCPCS: 71046; 93005; 99284

== ENCOUNTER → 2024-02-13 | Outpatient (CLI) | payer MEDICARE ==
--- NOTE | 2024-02-16 02:18 | MM ---
Reason for Exam: Screening (asymptomatic). Last mammogram was performed 1 year(s) and 4 month(s) ago. Patient History: Menarche at age 15. Patient has no children. Postmenopausal. 2008, Bilateral Reduction. 07/11/2018, Benign Core Biopsy on the left side. 08/13/2017, Benign Core Biopsy on the left side. Risk Values: Luann 5 year model risk: 2.6%. NCI Lifetime model risk: 8.3%. Prior Study Comparison: 09/14/2020 Bilateral Diagnostic Mammogram, [facility]. 09/15/2021 Bilateral MG 3D screening mammo w/cad, [facility]. 10/18/2022 Bilateral MG 3D screening mammo w/cad, [facility]. Tissue Density: There are scattered areas of fibroglandular density. Findings: Analyzed By CAD. The pattern is symmetrical. There is coarse calcification within the left breast. Core markers seen within the left breast. No suspicious groups of microcalcifications, spiculated or lobular masses, architectural distortion or other secondary signs of malignancy are mammographically apparent. Overall Assessment: Benign, BI-RAD 2 Management: Screening Mammogram of both breasts in 1 year. A negative mammogram report should not preclude additional follow up of suspicious palpable abnormalities. Patient should continue monthly self breast exam. A clinical breast exam by your physician is recommended on an annual basis and results should be correlated with mammographic findings. Note on Luann scores and lifetime risk: 1. A Luann score greater than 3% is considered moderate risk. If this is the case, consider specialist referral to assess eligibility for a risk reducing agent. 2. If overall lifetime risk for the development of breast cancer is 20% or higher, the patient may qualify for future screening with alternating mammogram and breast MRI. [facility], , 02/16/2024 2:15 AM. Electronically signed and approved by: Eliazar Downs D.O. Radiologis
== END | disposition home or self-care (01) ==
LOC: RADMAMWWP 16:24
PROVIDERS: ATTEND Family Medicine
DX: Z12.31 Encounter for screening mammogram for malignant neoplasm of breast (principal); Z78.0 Asymptomatic menopausal state; R92.323 Mammographic fibroglandular density, bilateral breasts
CPT/HCPCS: 77063; 77067

== ENCOUNTER → 2024-04-24 | Outpatient (CLI) | payer MEDICARE ==
[2024-04-24 15:11] LABS: Basophils # (A) 0.02 X 10*3/uL (0.00-0.10); Basophils % (A) 0.3 %; Eosinophils # (A) 0.11 X 10*3/uL (0.04-0.35); Eosinophils % (A) 1.9 %; HGB 13.3 g/dL (12.0-15.0); Lymphocytes % (A) 20.6 %; MCH 28.9 pg (27.0-32.0); MCHC 32.4 g/dL (32.0-37.0); MCV 88.9 FL (80.0-97.0); Mean Platelet Volume 11.1 FL (9.5-12.2); Monocytes # (A) 0.48 X 10*3/uL (0.20-1.00); Monocytes % (A) 8.2 %; NRBC Per 100 WBC 0 X 10*3/uL (0.00-0.01); Neutrophils # (A) 4.01 X 10*3/uL (1.80-7.70); Neutrophils % (A) 68.8 %; Platelet Count 331 X 10*3/uL (140-440); RBC 4.61 X 10*6/uL (4.10-5.20); RDW 13.7 % (11.5-14.5); WBC 5.83 X 10*3/uL (4.50-10.00)
[2024-04-24 15:35] LABS: ALT 45 U/L (8-44); AST 42 U/L (13-35); Albumin 4.3 g/dL (3.8-4.9); Albumin/Globulin Ratio 1.95 Ratio (1.60-3.17); Alkaline Phosphatase 114 U/L (41-126); BUN/Creat Ratio 13.71 Ratio (12.00-20.00); Blood Urea Nitrogen 9.6 mg/dL (9.0-27.0); Calcium 9.2 mg/dL (8.7-10.3); Carbon Dioxide 26.4 mmol/L (21.6-31.8); Chloride 106 mmol/L (96-109); Globulin 2.2 g/dL (1.6-3.3); Glucose 93 mg/dL (70-110); Potassium 4.2 mmol/L (3.5-5.5); Sodium 142 mmol/L (135-145); Total Bilirubin 0.7 mg/dL (0.3-1.2); Total Protein 6.5 g/dL (6.2-8.2)
== END | disposition home or self-care (01) ==
LOC: LABWHC1 10:00
PROVIDERS: ATTEND Family Medicine
DX: I10 Essential (primary) hypertension (principal); E03.9 Hypothyroidism, unspecified; R74.8 Abnormal levels of other serum enzymes
CPT/HCPCS: 36415; 80053; 84443; 85025

== ENCOUNTER → 2024-08-22 | Outpatient (CLI) | payer MEDICARE ==
--- NOTE | 2024-08-22 09:37 | MR ---
EXAMINATION TYPE: MR brain/orbits wo/w con DATE OF EXAM: 08/22/2024 9:15 AM COMPARISON: None. 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 IV Contrast: 6 cc Gadobutrol (None if empty) TECHNIQUE: Multiplanar, multisequence images of the brain and brainstem is performed without and with IV contras t, utilizing 6 mL intravenous Gadobutrol . FINDINGS: The T1-weighted sagittal images, the midline structures including the craniovertebral junction relati onships appear normal. The ventricles, basal cisterns and sulci over convexities are moderately enlarged consistent with mod erate atrophy. No abnormal signal intensity is seen throughout the brain parenchyma. The diffusion-weighted images, there is no diffusion restriction or acute ischemic event. Following contrast administration, there is no pathological enhancement. The intraorbital contents are normal and symmetric without mass or pathological enhancement. The glob es are intact and unremarkable. The optic nerve and nerve sheaths are normal and symmetric without ma ss or pathological enhancement The paranasal sinuses and mastoid air cells are well aerated. There is mild mucosal thickening in the ethmoid air cells. The posterior fossa including brain stem, fourth ventricle and cerebellopontine angles appear normal. IMPRESSION: 1. Moderate generalized atrophy. 2. No mass, mass effect or pathological enhancement. 3. No acute ischemic event. 4. No significant abnormality of the orbits or intraorbital contents. [facility], , 08/22/2024 9:34 AM
== END | disposition home or self-care (01) ==
LOC: RADMRIMAIN 07:35
PROVIDERS: ATTEND Student in an Organized Health Care Education/Training Program
DX: H53.19 Other subjective visual disturbances (principal); G31.1 Senile degeneration of brain, not elsewhere classified
CPT/HCPCS: 70543; 70553; A9585

== ENCOUNTER → 2024-08-24 | Outpatient (CLI) | payer MEDICARE ==
[2024-08-24 10:34] LABS: ALT 63 U/L (8-44); AST 57 U/L (13-35); LDL Cholesterol,Calculated 42.4 mg/dL (0.0-131.0); VLDL Calculation 11.16 mg/dL (5.00-40.00)
== END | disposition home or self-care (01) ==
LOC: LABWHC1 07:48
PROVIDERS: ATTEND Internal Medicine
DX: E78.2 Mixed hyperlipidemia (principal)
CPT/HCPCS: 36415; 80061; 84450; 84460